=== PATIENT | female | born 1995 | race Caucasian/White ===

== ENCOUNTER 2016-11-07 14:28 | Emergency (ER) | payer MEDICAID ==
[~2016-11-07] VITALS: Ht 154.9 cm; Wt 62.6 kg
[2016-11-07 15:32] VITALS: BP 132/80
== END 2016-11-07 15:32 | disposition home or self-care (01) ==
LOC: ED 14:28
DX: R21 Rash and other nonspecific skin eruption (principal); L29.9 Pruritus, unspecified